=== PATIENT | male | born 1945 | race Caucasian/White ===

== ENCOUNTER → 2017-01-20 | Day surgery (SDC) | payer MEDICARE, OTHER ==
[~2017-01-20] VITALS: Ht 175.3 cm; Wt 90.8 kg
[~2017-01-20] MED LIST: ASPIRIN EC81 MG PO; CO Q-10100 MG PO; FISH OIL PO; GLUCOPHAGE1000 MG PO; HYDROCHLOROTHIA50 MG PO; K-TAB ER20 MEQ PO; MINOCYCLINE HCL50 M1 PO; NABUMETONE750 MG PO; ZOCOR20 MG PO
== END | disposition disaster alternative care site (69) ==
LOC: GPOC 01-19 16:00 → GSDC 11:59
PROC: 3E0S33Z Introduction of Anti-inflammatory into Epidural Space, Percutaneous Approach (ICD-10-PCS; principal; 2017-01-20)
PROC: 3E0S3BZ Introduction of Anesthetic Agent into Epidural Space, Percutaneous Approach (ICD-10-PCS; 2017-01-20)
DX: G89.29 Other chronic pain (principal); M54.5 Low back pain; M51.36 Other intervertebral disc degeneration, lumbar region; E11.9 Type 2 diabetes mellitus without complications; M19.90 Unspecified osteoarthritis, unspecified site; E78.00 Pure hypercholesterolemia, unspecified; I10 Essential (primary) hypertension; E78.5 Hyperlipidemia, unspecified; Z87.442 Personal history of urinary calculi; Z87.891 Personal history of nicotine dependence; Z98.890 Other specified postprocedural states; Z79.82 Long term (current) use of aspirin; Z79.899 Other long term (current) drug therapy
CPT/HCPCS: J1030; J1040